=== PATIENT | male | born 1935 | race Caucasian/White ===

== ENCOUNTER 2019-11-17 12:37 | Outpatient (CLI) | payer BC, SELFPAY ==
--- NOTE | ~2019-11-17 | MR_ITS ---
EXAMINATION: MR brain IAC wo/w con EXAM DATE: 11/17/2019 14:40 INDICATION: Amnesia. Forgetful. TECHNIQUE: Multi-sequential, multiplanar MR images of the brain, brainstem, internal auditory canals were obtained without contrast. Whole brain sagittal T1, axial diffusion, gradient echo (T2*), T1, T 2, FLAIR sequences obtained. High resolution coronal 3-D FIESTA, coronal T1 FSE, axial T1 FSPGR of t he internal auditory canals. Patient was then injected with 10 cc Multihance contrast intravenously. Postcontrast axial and coronal T1 weighted whole brain, axial and coronal high resolution T1 IAC seq uences obtained. There is no prior study for comparison. FINDINGS: There is a small mass which appears to be arising from the region of the left hypoglossal canal at the skull base with the portion which is outside the canal measuring 7 mm in diameter. This minimally expands the canal. It is high in T2 signal, does not demonstrate enhancement. Absence of en hancement and restricted diffusion favors a benign indolent process. Cannot specifically identify thi s on the previous examination which did not have high resolution IAC images. Probably incidental candelario gn finding but a 3-six-month follow-up IAC MRI is recommended. No evidence of mastoid or middle ear o pacification. The 7th/8th cranial nerve complexes are symmetric, normal in course and caliber. Expected evolution of previously seen small left-sided signals from subacute infarctions, chronic pratibha earance today. There is no acute hemorrhage seen on the T2*, a hemosiderin sensitive sequence. No i ntraparenchymal brain mass lesion. There is mild periventricular and subcortical T2/FLAIR signal hype rintensity, nonspecific but probably related to small vessel ischemic disease (microangiopathy). Th ere is mild prominence of the sulci and ventricles related to cerebral atrophy. There are no extra- axial collections. Absence of flow related signal in the left internal carotid artery. The orbits ar e unremarkable. Soft tissue is unremarkable. IMPRESSION: 1. Incidental cystic nonenhancing small mass arising from the left hypoglossal canal region, most li sherice either primary bone histology or possibly nerve tumor but absence of restricted diffusion and en hancement favors indolent benign process. Recommend 3-six-month follow-up IAC exam. 2. Chronic age related findings. 3. Chronically occluded left ICA. Reviewed, dictated and finalized at location A. [employer] IMPRESSION: 1. Incidental cystic nonenhancing small mass arising from the left hypoglossal canal region, most likely either primary bone histology or possibly nerve tumo r but absence of restricted diffusion and enhancement favors indolent benign pr ocess. Recommend 3-six-month follow-up IAC exam. 2. Chronic age related findings. 3. Chronically occluded left ICA.
[2019-11-17 13:44] LABS: Blood Urea Nitrogen 21 mg/dL (8-26); Estimated Glomerular Filt Rate 48
== END 2019-11-17 12:38 | disposition home or self-care (01) ==
PROVIDERS: PCP Family Medicine; Visit Provider Physician Assistant
DX: R41.3 Other amnesia (principal); I65.22 Occlusion and stenosis of left carotid artery
CPT/HCPCS: 70553; A9577

== ENCOUNTER 2019-12-13 08:36 | Outpatient (CLI) | payer BC, SELFPAY ==
--- NOTE | 2019-12-13 09:00 | NEURO_ITS ---
TEST: ELECTROENCEPHALOGRAM DIAGNOSIS: COGNITIVE DECLINE PATIENT NUMBER: [id number] EEG NUMBER: [id number] RECORDING DATE: 12/13/19 CLINICAL HISTORY: Patient reports memory issues but does not know how long it has been going on. CONDITION OF RECORDING: Awake, drowsy and sleep EEG DESCRIPTION: The whole record consists of diffused low voltage 18-21beta activity. Bilateral symmetrical sleep activity is seen during sleep. Photic stimulation produced normal drive. Hyperventilation not done due to patients? age. Nonparoxysmal. Nonfocal. Nonlateralizing. IMPRESSION: No significant abnormalities noted, in particular there is no evidence of any focal or diffused high voltage theta or delta activity. Clinical correlation recommended. [facility]
[2019-12-16 09:40] LABS: Rapid Plasma Reagin Non-Reactive (NonReactive)
== END 2019-12-13 08:37 | disposition home or self-care (01) ==
PROVIDERS: PCP Family Medicine; Visit Provider Psychiatry & Neurology Neurology
DX: R41.89 Other symptoms and signs involving cognitive functions and awareness (principal); I25.10 Atherosclerotic heart disease of native coronary artery without angina pectoris; I10 Essential (primary) hypertension; Z79.899 Other long term (current) drug therapy
CPT/HCPCS: 36415; 82607; 84436; 84443; 86592; 95816

== ENCOUNTER 2020-01-24 11:40 | Inpatient (IN) | payer BC, SELFPAY ==
[2020-01-24] VITALS (9 sets, daily range): BP systolic 115–150; BP diastolic 67–110; PULSE 79–106; RESP 18–99; TEMP 36.2–36.8; O2SAT 20–100; BMI 15.3
--- NOTE | ~2020-01-24 | CT_ITS ---
EXAMINATION: CT abdomen pelvis wo con DATE: 01/24/2020 18:45 INDICATION: Weight loss TECHNIQUE: Computed tomography (CT) of the abdomen and pelvis was performed without intravenous contr ast. The dose-length product (DLP) was 222.33 mGy-cm. Automated exposure control and iterative recons truction technique were employed. COMPARISON: None FINDINGS: There is mild emphysema of the visualized lung bases. The heart size is normal. A moderate- sized sliding hiatal hernia is present. The intra-abdominal portion of the stomach is largely collaps ed and not well evaluated. Cysts of the liver measure up to 3.4 cm in the left hepatic lobe. Mild dis tention of the gallbladder is likely due to fasting state. The spleen, pancreas, and adrenal glands a re normal. There is marked distention of the urinary bladder. There is linear hyperattenuating materi al layering dependently in the bladder. There is mild to moderate right hydroureteronephrosis. A 1.5 cm cyst is noted in the right kidney. There is calcified atherosclerosis of the aorta and many of the other arteries. No pathologically enlarged abdominal or pelvic lymph nodes are identified. There is no free intraperitoneal gas or evidence of bowel obstruction. There is a large volume of colonic stoo l with impacted feces in the rectum. Brachytherapy seeds are noted in the prostate. There is moderate lumbar spondylosis. IMPRESSION: 1. Severe distention of the urinary bladder. Moderate right hydroureteronephrosis is likely due to bl adder distention. 2. Linear hyperattenuation in the dependent portion of the urinary bladder, likely bladder stones. 3. Constipation with fecal impaction in the rectum. Reviewed, dictated and finalized at location A. IMPRESSION: 1. Severe distention of the urinary bladder. Moderate right hydroureteronephros is is likely due to bladder distention. 2. Linear hyperattenuation in the dependent portion of the urinary bladder, lik flor bladder stones. 3. Constipation with fecal impaction in the rectum.
--- NOTE | ~2020-01-24 | XR_ITS ---
XR chest 2V DATE: 01/24/2020 12:21 INDICATION: Shortness of breath. Loss of appetite. Weakness. TECHNIQUE: AP and lateral views COMPARISON: 05/14/2018 portable AP chest FINDINGS: Status post sternotomy and cardiac valve replacement. Normal heart size. Aortic calcificati on. No hilar or mediastinal enlargement. Bilateral hyperinflation. A skinfold overlies the mid to upper outer right lung. No apparent pneumoth orax. No pleural effusion or pulmonary vascular congestion. Diffuse osteopenia. Diffuse idiopathic skeletal hyperostosis of the thoracic spine. IMPRESSION: COPD No active cardiopulmonary disease Status post sternotomy and probable aortic valve replacement Reviewed, dictated and finalized at location A.
--- NOTE | ~2020-01-24 | US_ITS ---
EXAMINATION: US renal BI DATE: 01/27/2020 14:47 INDICATION: Hydronephrosis. TECHNIQUE: Multiple ultrasound grayscale images of the kidneys were obtained. COMPARISON: CT abdomen and pelvis 01/24/2020 FINDINGS: The right kidney measures 8.6 x 3.3 x 3.7 cm. The left kidney measures 8.6 x 4.5 x 3.7 cm. The kidney s demonstrate normal parenchymal echogenicity. There is a 1.4 cm cyst in right kidney There is no hyd ronephrosis. The bladder is decompressed by a Jean catheter. IMPRESSION: 1. Mild atrophy of the kidneys. No hydronephrosis. Reviewed, dictated and finalized at location A.
--- NOTE | ~2020-01-24 | US_ITS ---
US right upper quadrant DATE: 01/27/2020 10:15 INDICATION: Elevated serum bilirubin level. Weight loss. Anorexia. Malnutrition. TECHNIQUE: Real-time imaging of liver, pancreas, gallbladder areas COMPARISON: 01/24/2020 CT abdomen pelvis FINDINGS: The pancreas is obscured by bowel gas. No hepatic space-occupying mass lesion is evident. N ormal hepatic portal venous flow direction. There is sludge within the gallbladder lumen. No gallstones or gallbladder wall thickening are identi fied. Negative sonographic Cagle's sign. The common bile duct measures 2.4 mm, within normal range. IMPRESSION: Sludge in gallbladder Pancreas is obscured by bowel Reviewed, dictated and finalized at Location A. Reviewed, dictated and finalized at location A.
--- NOTE | 2020-01-24 11:48 | ECG_ITS ---
Measurements Intervals [place] Rate: 109 P: 83 ME: 161 QRS: -82 QRSD: 133 T: 81 QT: 346 QTc: 466 Interpretive Statements SINUS TACHYCARDIA RIGHT ATRIAL ENLARGEMENT LEFT ATRIAL ENLARGEMENT RIGHT BUNDLE BRANCH BLOCK LEFT ANTERIOR FASCICULAR BLOCK LEFT VENTRICULAR HYPERTROPHY AND ST-T CHANGE BASELINE ARTIFACT- I, II, III, AVR ABNORMAL ECG Electronically Signed On 01-24-2020 11:52:01 CDT by Grant Pineda D.O.
[2020-01-24 11:57] LABS: Basophils Percent Auto 0.1 % (0.2-1.2); Immature Granulocyte Absolute 0.19 K/mm3 (0.00-0.031); Lymphocytes Percent Auto 3.3 % (18.3-44.2); Mean Corpuscular HGB Conc 32.7 g/dl (32-36); Mean Corpuscular Hemoglobin 30.7 pg (26-34); Mean Platelet Volume 10.7 fl (7.4-10.4); Monocytes Absolute Auto 1.1 K/mm3 (0.1-0.6); Monocytes Percent Auto 5.8 % (2.6-8.5); Neutrophils Absolute Auto 16.6 K/mm3 (1.3-6.7); Neutrophils Percent Auto 89.8 % (45.5-73.1); Platelet Count Result 225 k/mm3 (150-375); Red Blood Count 5.53 M/mm3 (4.6-6.20); Red Cell Distribution Width 14.2 % (11.5-14.5); White Blood Count 18.4 K/mm3 (4.5-10.0)
[2020-01-24 12:12] LABS: Alanine Aminotransferase 38 U/L (4-50); Albumin Level 4.7 g/dL (3.5-5.1); Alkaline Phosphatase 74 U/L (38-126); Aspartate Amino Transferase 38 U/L (17-59); Bilirubin,Total 1.6 mg/dL (0.2-1.3); Blood Urea Nitrogen 87 mg/dL (9-20); Calcium 10.1 mg/dL (8.4-10.2); Carbon Dioxide 25 mmol/L (22-30); Chloride 119 mmol/L (98-107); Estimated CRCL calculation 15 ml/min; Estimated Glomerular Filt Rate 30; Glucose 123 mg/dL (75-110); Potassium 4.3 mmol/L (3.4-5.0); Sodium 154 mmol/L (137-145)
--- NOTE | 2020-01-24 12:55 | PC.NURSE ---
Attempted straight cath at this time, unable to pass prostate. Also attempted coude catheter with no results noted. Dr. Sheriff notified.
[2020-01-24] MEDS: SODIUM CHLORIDE 0.9% IV 500 ML IV CONT (13:17)
--- NOTE | 2020-01-24 13:17 | PC.NURSE ---
Verbal order received per Dr. Sheriff for 500 ml NS bolus at this time.
--- NOTE | 2020-01-24 13:51 | ED.GENADULT ---
HPI - General Adult General Chief complaint: Weakness Stated complaint: Weakness Time Seen by Provider: 01/24/20 12:42 Source: patient and family Mode of arrival: EMS Limitations: clinical condition and dementia History of Present Illness HPI narrative: 84-year-old with a history of hypertension, hyperlipidemia, dementia was brought in from home with the complaints of marked weakness. Patient and his report that he has not been eating or drinking for past few days. He states that he has no appetite. And he also mentions that he does not feel good. No history of fever or chills. Denies any nausea, vomiting or abdominal pain or diarrhea. No history of chest pain or shortness of breath. Onset (ago): day(s) (2) Severity: moderate Pain Consistency: constant Exacerbating factors: none Associated symptoms: denies other symptoms Related Data Home Medications Medication Instructions Recorded Confirmed amlodipine 2.5 mg tablet 2.5 mg PO DAILY 08/22/19 lisinopril 10 mg tablet 10 mg PO DAILY 11/13/19 Allergies Allergy/AdvReac Type Severity Reaction Status Date / Time [id number] Reductase AdvReac Intermediate Swelling Verified 11/13/19 14:28 Inhibitor statins AdvReac Intermediate Swelling Uncoded 09/12/19 08:18 Review of Systems Review of Systems: All systems reviewed & are unremarkable except as noted in HPI and below Constitutional: Constitutional: Reports no additional constitutional complaints Eyes: Eyes: Reports no additional eye complaints ENT: Reports system reviewed and no additional complaints, except as documented Cardiovascular: Cardiovascular: Reports no additional cardiovascular complaints Respiratory: Respiratory: Reports no additional respiratory complaints Gastrointestinal: Gastrointestinal: Reports abdominal pain Musculoskeletal: Musculoskeletal: Reports no additional musculoskeletal complaints Neurologic: Reports system reviewed and no additional complaints, except as documented Psychiatric: Psychiatric: Reports depression [facility] Past Medical History Medical History Anxiety Coronary artery disease HLD (hyperlipidemia) Hypertension Hypertension Surgical History Surgical History Aortic valve replaced H/O mitral valve replacement Hx of heart bypass surgery Social History Social History Social History: Denies tobacco use Smoking status: Never smoker Second hand tobacco smoke exposure: No Alcohol intake: never Substance use: never Gender identity (if verbalized by the patient): Male Exam Const: General: alert and ill appearing Nutritional Appearance: thin HENMT: Head: normal to inspection Eyes: Pupils: Equal, round and reactive pupils present Neck: Neck: normal visual inspection Resp: Effort & Inspection: normal respiratory effort Auscultation: clear to auscultation bilaterally Cardio: Rate: tachycardic GI: GI Palp: Yes Soft to palpation Skin: General skin exam: normal color Neuro: General: patient oriented x3 Course Course Emergency Course: Inform patient about his lab work here. Will admit to the hospital for hydration. Vital Signs Vital signs: Vital Signs Temperature 36.8 C 01/24/20 11:41 Pulse Rate 101 H 01/24/20 11:41 Respiratory Rate 20 01/24/20 11:41 Blood Pressure 128/83 01/24/20 11:41 Pulse Oximetry 95 01/24/20 11:41 Temperature 36.8 C 01/24/20 11:41 Pulse Rate 106 H 01/24/20 13:35 Respiratory Rate 20 01/24/20 13:35 Blood Pressure 150/79 H 01/24/20 13:35 Pulse Oximetry 100 01/24/20 13:35 Medical Decision Making Vital Signs Vital Signs: Vital Signs Temperature 36.8 C 01/24/20 11:41 Pulse Rate 101 H 01/24/20 11:41 Respiratory Rate 20 01/24/20 11:41 Blood Pressure 128/83 01/24/20 11:41 Pulse Oximetry 95
--- NOTE | 2020-01-24 14:08 | PC.NURSE ---
Bladder scan patient at this time, 200 ml urine noted.
[2020-01-24] MEDS: SODIUM CHLORIDE 0.9% IV 1,000 ML 75 ML IV CONT (15:00)
--- NOTE | 2020-01-24 15:23 | PM.IMHP ---
H&P: HPI History of Present Illness Chief complaint: LYUDMILA < dehydration Narrative: Dung Saab is a 84 year old male of having CVAs and TIAs. The patient has not been eating or drinking for several days and has become very weak. He denies any fever or chills. No nausea no vomiting no diarrhea. Patient stated he just does not feel like eating. He has been followed by neurology he sees Dr. Urbano the neurologist. Patient has had several months of odd behaviors, delusions, and paranoia. Patient had a MRI of the brain which demonstrates chronic ischemic changes. An incidental cystic masses noted in the left hypoglossal canal region for which a follow-up examination is recommended by the [facility] radiologist. He also had evidence of an occluded left internal carotid artery. When I question the patient concerning his career the patient could not remember. I asked him to say a few words in Martiniquais and he was having difficulty remembering the translation from Swedish. Patient kept apologizing saying he did not know is wrong with him because he lost his memory. Patient had subacute progressive memory impairment with delusions and frontal lobe cognition issues, suspect for potential frontal temporal dementia. Also concurrent depression likely. Is recommended that the patient possibly have a PET scan for further evaluation.Was noted to be 154. Patient appears to be dehydrated. Creatinine 2.1. Patient has not had any previous history of any kidney disease. Patient's chest x-ray was read as COPD. No acute cardiopulmonary disease. Date of service 01/24/2020 Review of Systems Review of Systems: All systems reviewed & are unremarkable except as noted in HPI and below Constitutional: Constitutional: Reports as per HPI and Reports no additional constitutional complaints Eyes: Eyes: Reports as per HPI and Reports no additional eye complaints ENT: Reports system reviewed and no additional complaints, except as documented, Reports Normal hearing present and Reports dry mouth Cardiovascular: Cardiovascular: Reports no additional cardiovascular complaints Respiratory: Respiratory: Reports no additional respiratory complaints and Reports no additional respiratory complaints Gastrointestinal: Gastrointestinal: Reports as per HPI Comments: Loss of appetite Musculoskeletal: Musculoskeletal: Reports no additional musculoskeletal complaints Integumentary/Breasts: Skin/Breast: Reports system reviewed and no additional complaints, except as docu and Reports as per HPI Neurologic: Reports system reviewed and no additional complaints, except as documented, Reports as per HPI and Reports Normal hearing present Psychiatric: Psychiatric: Reports no additional psychiatric complaints and Reports as per HPI Endocrine: Endocrine: Reports no additional endocrine complaints Hematologic/Lymphatic: Hematologic/Lymphatic: Reports no additional hematologic/lymphatic complaints Allergic/Immunologic: Allergic/Immunologic: Reports no additional allergic/immunologic complaints [facility] Past Medical History Medical History (Updated 01/24/20 @ 15:40 by Mallory Hartmann NP) Anxiety Coronary artery disease History of 3 vessel CABG History of CVA (cerebrovascular accident) History of prostate cancer Radiation seed implants History of TIAs HLD (hyperlipidemia) Hypertension Surgical History Surgical History (Updated 01/24/20 @ 15:40 by Mallory Hartmann NP) Aortic valve replaced H/O inguinal hernia repair H/O mitral valve replacement Hx of heart bypass surgery 3 vessel CABG Family History Family History Mother Natural with proved cause Father Fall at the age of 75 due to complications of following up for [place]. Sibling Accidental One brother Heart disease Two brothers from coronary artery disease Social History Social History (Updated 01/24/20 @ 15:45
--- NOTE | 2020-01-24 15:30 | ADMGEN ---
This patient, Dung Saab, was admitted to 2 Medical Room 242-01. Patient/family oriented to hospital policies and general routines including ID bracelet, bed and alarms, visiting hours, pain management, procedures, bathroom and other care routines, personal items, smoking policy, room service/diet, and visiting hours. Valuables list has been completed. Information on how to activate the Rapid Response Team has been discussed. Patient/Family are encouraged to report perceived risks to care and to ask questions if they do not understand what they are told or what they should do.
[2020-01-24 15:52] LABS: Blood Urea Nitrogen 84 mg/dL (9-20); Calcium 9.6 mg/dL (8.4-10.2); Carbon Dioxide 25 mmol/L (22-30); Chloride 121 mmol/L (98-107); Estimated CRCL calculation 13 ml/min; Estimated Glomerular Filt Rate 26; Glucose 119 mg/dL (75-110); Potassium 4.2 mmol/L (3.4-5.0); Sodium 155 mmol/L (137-145)
[2020-01-24] MEDS: DEXTROSE 5%/0.45% SOD CHL 1,000 ML 100 ML IV CONT (16:15)
[2020-01-24] MEDS: FAMOTIDINE 20 MG/2 ML VIAL IV PUSH (20:18)
[2020-01-24 22:26] LABS: Blood Urea Nitrogen 82 mg/dL (9-20); Calcium 9.4 mg/dL (8.4-10.2); Carbon Dioxide 25 mmol/L (22-30); Chloride 123 mmol/L (98-107); Estimated CRCL calculation 15 ml/min; Estimated Glomerular Filt Rate 32; Glucose 150 mg/dL (75-110); Sodium 154 mmol/L (137-145)
[2020-01-25 04:55] LABS: Basophils Percent Auto 0.1 % (0.2-1.2); Hematocrit 46.9 % (42.0-52.0); Hemoglobin 15.7 g/dL (14.0-18.0); Immature Granulocyte Absolute 0.09 K/mm3 (0.00-0.031); Immature Granulocyte Percent A 0.6 % (0-0.5); Lymphocytes Percent Auto 3.4 % (18.3-44.2); Mean Corpuscular HGB Conc 33.5 g/dl (32-36); Mean Corpuscular Hemoglobin 31.3 pg (26-34); Mean Corpuscular Volume 93.6 fl (80-100); Mean Platelet Volume 10.6 fl (7.4-10.4); Monocytes Percent Auto 6.9 % (2.6-8.5); Platelet Count Result 160 k/mm3 (150-375); Red Blood Count 5.01 M/mm3 (4.6-6.20); Red Cell Distribution Width 14.1 % (11.5-14.5); White Blood Count 14.6 K/mm3 (4.5-10.0)
[2020-01-25 05:13] LABS: Blood Urea Nitrogen 83 mg/dL (9-20); Calcium 9.6 mg/dL (8.4-10.2); Carbon Dioxide 27 mmol/L (22-30); Chloride 122 mmol/L (98-107); Estimated CRCL calculation 15 ml/min; Estimated Glomerular Filt Rate 32; Glucose 166 mg/dL (75-110); Magnesium 3.5 mg/dL (1.6-2.3); Potassium 4.1 mmol/L (3.4-5.0); Sodium 155 mmol/L (137-145)
[2020-01-25 06:00] VITALS: BP 142/70; PULSE 84; RESP 20; TEMP 36.7; O2SAT 99
[2020-01-25] MEDS: DEXTROSE 5%/0.45% SOD CHL 1,000 ML 100 ML IV CONT ×2 (06:18→15:56)
[2020-01-25 06:26] LABS: Thyroid Stimulating Hormone Reflex 0.864 uIU/mL (0.465-4.68)
[2020-01-25] MEDS: FAMOTIDINE 20 MG/2 ML VIAL IV PUSH ×2 (08:20→21:19)
[2020-01-25] MEDS: polyethylene glycoL 3350 17 GM POWD.PACK PO (10:01)
[2020-01-25] MEDS: AMLODIPINE BESYLATE 5 MG TABLET PO (10:01)
--- NOTE | 2020-01-25 11:09 | WPDUROPN2 ---
Progress Note: A&P Assessment and Plan (1) LYUDMILA (acute kidney injury): Code(s): N17.9 - Acute kidney failure, unspecified Status: Acute Assessment and Plan: needs renner and placed (2) Acute dehydration: Code(s): E86.0 - Dehydration Status: Acute (3) Prostate cancer: Code(s): C61 - Malignant neoplasm of prostate Status: Acute Assessment and Plan: had brachytherapy and unsure recent PSA. (4) Hydronephrosis: Code(s): N13.30 - Unspecified hydronephrosis Status: Acute Assessment and Plan: likely secondary to bladder distension---will check JOSE LUIS in few days (5) Urinary retention: Code(s): R33.9 - Retention of urine, unspecified Status: Acute Assessment and Plan: placed renner---difficult past prostate----will follow output. sheree myogenic bladder Subjective Subjective Date/Time Seen: 01/25/20 11:09 Principal diagnosis: right hydronephrosis and bladder distended, SP brachytherapy Interval history: Patient with past brachytherapy and has CT with distended bladder and right hydro small bladder stones. Could not place renner in ER yesterday with several attempts. He denies pain and voiding dysfunction. Review of Systems Gastrointestinal: Gastrointestinal: Reports no additional gastrointestinal complaints Musculoskeletal: Musculoskeletal: Reports atrophy Exam Narrative: Exam Narrative: very thin and no bladder pain---placed coude 16 turkmen at bedside Const: General: cooperative; No acute distress HENMT: Ears: hearing grossly normal bilaterally Resp: Effort & Inspection: normal respiratory effort GI: Inspection: normal to inspection GI Palp: No abdominal tenderness : General: Yes bladder normal to palpation and Yes no CVA tenderness Penis: Yes normal penis Meatus: meatus normal Scrotum: scrotum normal Objective Data Vital Signs Vital Signs: Vital Signs - 24 hr 01/24/20 11:41 01/24/20 12:32 01/24/20 12:34 Temperature 36.8 C Pulse Rate 101 H 79 103 H Respiratory Rate 20 23 H Blood Pressure 128/83 115/76 Pulse Oximetry 95 100 01/24/20 13:28 01/24/20 13:35 01/24/20 14:00 Temperature Pulse Rate 102 H 106 H 101 H Respiratory Rate 18 20 18 Blood Pressure 150/79 H 150/79 H 150/110 H Pulse Oximetry 98 100 100 01/24/20 14:52 01/24/20 18:05 01/24/20 22:00 Temperature 36.4 C 36.4 C L 36.2 C L Pulse Rate 97 97 96 Respiratory Rate 20 18 99 H Blood Pressure 140/72 144/67 H 142/68 H Pulse Oximetry 98 96 20 L 01/25/20 06:00 Temperature 36.7 C Pulse Rate 84 Respiratory Rate 20 Blood Pressure 142/70 H Pulse Oximetry 99 Intake/Output Intake/Output: Intake & Output 01/22/20 01/23/20 01/24/20 01/25/20 23:59 23:59 23:59 23:59 Intake Total 624 1100 Balance 624 1100 Meds/Results Medications: Active Medications Generic Name Dose Route Start Last Admin Trade Name Freq PRN Reason Stop Dose Admin Acetaminophen 650 mg 01/24/20 13:35 Tylenol Tablet PO Q4H PRN Mild Pain (1-3) or Fever Amlodipine Besylate 5 mg 01/25/20 09:00 01/25/20 10:01 Norvasc PO 5 mg DAILY SAHE Administration Bisacodyl 10 mg 01/25/20 08:31 Dulcolax Suppository RECTAL DAILY PRN Constipation Famotidine 20 mg 01/24/20 21:00 01/25/20 08:20 Pepcid Iv IV PUSH 20 mg Q12HR SHAE Administration Hydralazine HCl 10 mg 01/24/20 15:21 Apresoline Hcl Inj IV PUSH Q8H PRN Blood Pressure - High Dextrose/Sodium Chloride 1,000 mls @ 100 mls/hr 01/24/20 16:00 01/25/20 06:18 Dextrose 5% Sodium Chloride 0.45% IV CONT 100 mls/hr .Q10H SHAE Administration Polyethylene Glycol 17 gm 01/25/20 09:00 01/25/20 10:01 Miralax PO 17 gm QAM SHAE Administration Radiology Results: ITS Impressions Chest X-Ray 01/24/20 12:27 IMPRESSION: COPD No active cardiopulmonary disease Status post sternotomy and probable aortic valve replacement
[2020-01-25 12:03] LABS: Add Urine Microscopic? YES; Appearance Urine Cloudy (Clear); Bilirubin Urine Negative (Negative); Blood Urine 3+ (Negative); Color Urine Yellow (Yellow); Glucose Urine UA Negative (Negative); Ketones Urine Negative (Negative); Leukocyte Esterase Ur Negative LEU/UL (Negative); Nitrate Urine Negative (Negative); Protein Urine 1+ mg/dL (Negative); RBC Urine >75 /hpf (0-2); Specific Grav Ur 1.021 (1.001-1.035); Uric Acid Crystals Urine Present /hpf; Urobilinogen Urine Negative mg/dL (<2.0); WBC Urine 0-3 /hpf
--- NOTE | 2020-01-25 12:30 | PM.IMPN ---
Progress Note: A&P Assessment and Plan (1) Severe malnutrition: Code(s): E43 - Unspecified severe protein-calorie malnutrition Status: Acute Assessment and Plan: Patient is 98lb. Patient does not want to eat, has no appetite. Patient expresses to me he would not want a feeding tube of any type. Continue dietary supplementation. Will touch base with family to discuss further goals of care. Edit: Spoke with patient's on the phone. She tells me he has had nothing to eat or drink since Monday, that he refuses to eat when she tries to feed him. Offered for her to speak with a hospice group - she would like to speak with her children first. (2) Memory impairment: Code(s): R41.3 - Other amnesia Status: Chronic Assessment and Plan: Patient's neurologist is Dr. Ventura Urbano. Office note from 12/02/19 describes a diagnosis of subacute progressive memory impairment with delusions and frontal lobe cognitive issues, suspect for potential frontotemporal dementia with likely concurrent depression. (3) Generalized weakness: Code(s): R53.1 - Weakness Status: Acute Assessment and Plan: Secondary to malnutrition, debility. Appreciate PT/OT evals for discharge planning. (4) Acute on chronic renal failure: Qualifiers: Chronic kidney disease stage: unspecified stage Acute renal failure type: unspecified Qualified Code(s): N17.9 - Acute kidney failure, unspecified; N18.9 - Chronic kidney disease, unspecified Code(s): N17.9 - Acute kidney failure, unspecified; N18.9 - Chronic kidney disease, unspecified Status: Acute Assessment and Plan: Cr up to 2.4 (was 1.4 in November). Poor/no oral intake, hypoperfusion, hydronephrosis may contribute. Monitor renal function. (5) Hypernatremia: Code(s): E87.0 - Hyperosmolality and hypernatremia Status: Acute Assessment and Plan: Sodium 155. Change IV fluids to D5W and recheck Na in AM. (6) Hydronephrosis: Qualifiers: Hydronephrosis type: unspecified Qualified Code(s): N13.30 - Unspecified hydronephrosis Code(s): N13.30 - Unspecified hydronephrosis Status: Acute Assessment and Plan: CT abdomen/pelvis shows severe distention of the urinary bladder in moderate right hydroureteronephrosis. Urology consulted - appreciate recommendations. (7) History of prostate cancer: Code(s): Z85.46 - Personal history of malignant neoplasm of prostate Status: Acute Assessment and Plan: Patient has history of prostate cancer, with brachytherapy seed implantation 2000 based on the EMR. (8) Urinary retention: Code(s): R33.9 - Retention of urine, unspecified Status: Acute Assessment and Plan: Jean catheter initiated. Low urine output may be secondary to severe dehydration. Appreciate urology input. (9) Coronary artery disease: Qualifiers: Associated angina: without angina Coronary Disease-Associated Artery/Lesion type: bypass graft [place] vs. transplanted heart: [place] heart Qualified Code(s): I25.810 - Atherosclerosis of coronary artery bypass graft(s) without angina pectoris Code(s): I25.10 - Atherosclerotic heart disease of [place] coronary artery without angina pectoris Status: Chronic Assessment and Plan: S/p three-vessel CABG, aortic valve replacement. Patient denies chest pain. (10) Hypertension: Qualifiers: Hypertension type: essential hypertension Qualified Code(s): I10 - Essential (primary) hypertension Code(s): I10 - Essential (primary) hypertension Status: Chronic Assessment and Plan: Blood pressure 1
[2020-01-25 13:05] VITALS: BMI 10.0
[2020-01-25 13:07] VITALS: BMI 10.0
[2020-01-25 13:59] LABS: Sodium 154 mmol/L (137-145)
[2020-01-25 14:00] VITALS: BP 153/65; PULSE 85; RESP 12; TEMP 36.4; O2SAT 100
[2020-01-25] MEDS: DEXTROSE 5% 1,000 ML 1,000 ML 80 ML IV CONT (16:08)
[2020-01-25] MEDS: BISACODYL 10 MG SUPPOSITORY RECTAL (18:29)
[2020-01-25 22:00] VITALS: BP 131/55; PULSE 57; RESP 20; TEMP 36.2; O2SAT 99
[2020-01-26 04:50] LABS: Hematocrit 45.6 % (42.0-52.0); Hemoglobin 14.7 g/dL (14.0-18.0); Mean Corpuscular HGB Conc 32.2 g/dl (32-36); Mean Corpuscular Hemoglobin 30.8 pg (26-34); Mean Corpuscular Volume 95.6 fl (80-100); Platelet Count Result 119 k/mm3 (150-375); Red Blood Count 4.77 M/mm3 (4.6-6.20); Red Cell Distribution Width 13.7 % (11.5-14.5)
[2020-01-26 05:10] LABS: Alanine Aminotransferase 28 U/L (4-50); Albumin Level 3.5 g/dL (3.5-5.1); Alkaline Phosphatase 58 U/L (38-126); Aspartate Amino Transferase 28 U/L (17-59); Bilirubin,Total 1.9 mg/dL (0.2-1.3); Blood Urea Nitrogen 54 mg/dL (9-20); Calcium 9.3 mg/dL (8.4-10.2); Carbon Dioxide 29 mmol/L (22-30); Chloride 120 mmol/L (98-107); Estimated CRCL calculation 25 ml/min; Estimated Glomerular Filt Rate 48; Glucose 129 mg/dL (75-110); Magnesium 3.1 mg/dL (1.6-2.3); Phosphorus 2.6 mg/dL (2.5-4.5); Potassium 3.6 mmol/L (3.4-5.0); Sodium 152 mmol/L (137-145)
[2020-01-26 06:00] VITALS: BP 129/62; PULSE 86; RESP 21; TEMP 36.6; O2SAT 100
[2020-01-26] MEDS: DEXTROSE 5% 1,000 ML 1,000 ML 80 ML IV CONT ×2 (06:01→16:51)
--- NOTE | 2020-01-26 08:19 | PC.NURSE ---
Patient refusing to take 0900 medications. Notified NATALIE Clark. She stated to hold 0900 dose of Miralax and Norvasc.
[2020-01-26] MEDS: FAMOTIDINE 20 MG/2 ML VIAL IV PUSH ×2 (08:24→21:05)
--- NOTE | 2020-01-26 08:48 | PCPTNOTE ---
Attempted therapy session. Pt refused LE exercises in bed, sitting EOB, and transferring to a recliner. Therapist explained the importance of therapy and the importance of getting up and moving, Pt acknowledged and stated I don't want to do any exercises or anything else because of this weakness. Will attempt therapy session again.
--- NOTE | 2020-01-26 10:34 | WPDUROPN2 ---
Progress Note: A&P Assessment and Plan (1) LYUDMILA (acute kidney injury): Code(s): N17.9 - Acute kidney failure, unspecified Status: Acute Assessment and Plan: Renner in place (2) Acute dehydration: Code(s): E86.0 - Dehydration Status: Acute (3) Prostate cancer: Code(s): C61 - Malignant neoplasm of prostate Status: Inactive Assessment and Plan: had brachytherapy and unsure recent PSA. (4) Hydronephrosis: Qualifiers: Hydronephrosis type: unspecified Qualified Code(s): N13.30 - Unspecified hydronephrosis Code(s): N13.30 - Unspecified hydronephrosis Status: Acute Assessment and Plan: likely secondary to bladder distension---will check JOSE LUIS in few days (5) Urinary retention: Code(s): R33.9 - Retention of urine, unspecified Status: Acute Assessment and Plan: placed renner---difficult past prostate----will follow output. sheree huffman bladder Subjective Subjective Date/Time Seen: 01/26/20 10:[address] Urine OK. Exam Narrative: Exam Narrative: very thin and no bladder pain---placed coude 16 hungarian at bedside Const: General: cooperative; No acute distress HENMT: Ears: hearing grossly normal bilaterally Resp: Effort & Inspection: normal respiratory effort GI: Inspection: normal to inspection : General: Yes bladder normal to palpation and Yes no CVA tenderness Penis: Yes normal penis Meatus: meatus normal Scrotum: scrotum normal Back/Spine/Pelvis: Back: no CVA tenderness Objective Data Vital Signs Vital Signs: Vital Signs - 24 hr 01/25/20 14:00 01/25/20 22:00 01/26/20 06:00 Temperature 36.4 C L 36.2 C L 36.6 C Pulse Rate 85 57 L 86 Respiratory Rate 12 20 21 H Blood Pressure 153/65 H 131/55 L 129/62 Pulse Oximetry 100 99 100 Intake/Output Intake/Output: Intake & Output 01/23/20 01/24/20 01/25/20 01/26/20 23:59 23:59 23:59 23:59 Intake Total 624 1606 929 Output Total 225 400 Balance 624 2971 529 Meds/Results Medications: Active Medications Generic Name Dose Route Start Last Admin Trade Name Freq PRN Reason Stop Dose Admin Acetaminophen 650 mg 01/24/20 13:35 Tylenol Tablet PO Q4H PRN Mild Pain (1-3) or Fever Amlodipine Besylate 5 mg 01/25/20 09:00 01/26/20 08:20 Norvasc PO Not Given DAILY SHAE Bisacodyl 10 mg 01/25/20 08:31 01/25/20 18:29 Dulcolax Suppository RECTAL 10 mg DAILY PRN Administration Constipation Famotidine 20 mg 01/24/20 21:00 01/26/20 08:24 Pepcid Iv IV PUSH 20 mg Q12HR SHAE Administration Hydralazine HCl 10 mg 01/24/20 15:21 Apresoline Hcl Inj IV PUSH Q8H PRN Blood Pressure - High Dextrose 1,000 mls @ 80 mls/hr 01/25/20 15:55 01/26/20 06:01 Dextrose 5% 1,000 Ml IV CONT 80 mls/hr .[id number] SHAE Administration Polyethylene Glycol 17 gm 01/25/20 09:00 01/26/20 08:20 Miralax PO Not Given QAM [facility] Radiology Results: ITS Impressions Chest X-Ray 01/24/20 12:27 IMPRESSION: COPD No active cardiopulmonary disease Status post sternotomy and probable aortic valve replacement Abdomen/Pelvis CT 01/24/20 18:55 IMPRESSION: 1. Severe distention of the urinary bladder. Moderate right hydroureteronephrosis is likely due to bladder distention. 2. Linear hyperattenuation in the dependent portion of the urinary bladder, likely bladder stones. 3. Constipation with fecal impaction in the rectum. Labs Labs: Laboratory Results - last 24 hr 01/25/20 01/25/20 01/26/20 11:40 13:40 04:33 WBC 13.0 H RBC 4.77 Hgb 14.7 Hct 45.6 MCV 95.6 MCH 30.8 MCHC 32.2 RDW 13.7 Plt Count 119 L MPV 11.0 H Sodium 154 H Potassium Chloride Carbon Dioxide BUN Creatinine Estim Creat Clear Calc Estimated GFR Glucose Calcium Phosphorus Magnesium Total Bilirubin AST ALT Alkaline
--- NOTE | 2020-01-26 12:59 | PM.IMPN ---
Progress Note: A&P Assessment and Plan (1) Severe malnutrition: Code(s): E43 - Unspecified severe protein-calorie malnutrition Status: Acute Assessment and Plan: Patient is 98lb. Patient does not want to eat, has no appetite. Patient expresses to me he would not want a feeding tube of any type. Continue dietary supplementation. Discussed long-term goals of care with patient's on the phone 01/24. She tells me he has had nothing to eat or drink since Monday, that he refuses to eat when she tries to feed him. Offered for her to speak with a hospice group - she would like to speak with her children first. She notes that he has an appointment with [facility] in May to establish care but tells me I am worried he may before then. (2) Memory impairment: Code(s): R41.3 - Other amnesia Status: Chronic Assessment and Plan: Patient's neurologist is Dr. Ventura Urbano. Office note from 12/02/19 describes a diagnosis of subacute progressive memory impairment with delusions and frontal lobe cognitive issues, suspect for potential frontotemporal dementia with likely concurrent depression. (3) Generalized weakness: Code(s): R53.1 - Weakness Status: Acute Assessment and Plan: Secondary to severe malnutrition, debility. Appreciate PT/OT evals for discharge planning. (4) Acute on chronic renal failure: Qualifiers: Acute renal failure type: unspecified Chronic kidney disease stage: unspecified stage Qualified Code(s): N17.9 - Acute kidney failure, unspecified; N18.9 - Chronic kidney disease, unspecified Code(s): N17.9 - Acute kidney failure, unspecified; N18.9 - Chronic kidney disease, unspecified Status: Acute Assessment and Plan: Cr improved to 1.4 with hydration. Poor/no oral intake, hypoperfusion, hydronephrosis may contribute. Monitor renal function. (5) Hypernatremia: Code(s): E87.0 - Hyperosmolality and hypernatremia Status: Acute Assessment and Plan: Sodium 152. Continue D5W and trend sodium level. (6) Hydronephrosis: Qualifiers: Hydronephrosis type: unspecified Qualified Code(s): N13.30 - Unspecified hydronephrosis Code(s): N13.30 - Unspecified hydronephrosis Status: Acute Assessment and Plan: CT abdomen/pelvis shows severe distention of the urinary bladder in moderate right hydroureteronephrosis. Urology consulted - appreciate recommendations. (7) History of prostate cancer: Code(s): Z85.46 - Personal history of malignant neoplasm of prostate Status: Acute Assessment and Plan: Patient has history of prostate cancer, with brachytherapy seed implantation 2000 based on the EMR. (8) Urinary retention: Code(s): R33.9 - Retention of urine, unspecified Status: Acute Assessment and Plan: Jean catheter initiated. Low urine output may be secondary to severe dehydration. Appreciate urology input. (9) Coronary artery disease: Qualifiers: Associated angina: without angina Coronary Disease-Associated Artery/Lesion type: bypass graft [place] vs. transplanted heart: [place] heart Qualified Code(s): I25.810 - Atherosclerosis of coronary artery bypass graft(s) without angina pectoris Code(s): I25.10 - Atherosclerotic heart disease of [place] coronary artery without angina pectoris Status: Chronic Assessment and Plan: S/p three-vessel CABG, aortic valve replacement. Patient denies chest pain. (10) Hypertension: Qualifiers: Hypertension type: essential hypertension Qualified Code(s): I10 - Essential (primary) hypertension Code(s): I10 -
[2020-01-26 14:00] VITALS: BP 138/57; PULSE 80; RESP 16; TEMP 36.4; O2SAT 100
[2020-01-27 04:00] VITALS: BP 121/58; PULSE 75; RESP 18; TEMP 36.7; O2SAT 99
[2020-01-27] MEDS: DEXTROSE 5% 1,000 ML 1,000 ML 80 ML IV CONT (05:18)
[2020-01-27 06:15] LABS: Alanine Aminotransferase 29 U/L (4-50); Albumin Level 3.1 g/dL (3.5-5.1); Alkaline Phosphatase 58 U/L (38-126); Aspartate Amino Transferase 24 U/L (17-59); Bilirubin,Total 1.7 mg/dL (0.2-1.3); Blood Urea Nitrogen 37 mg/dL (9-20); Calcium 8.7 mg/dL (8.4-10.2); Carbon Dioxide 26 mmol/L (22-30); Chloride 114 mmol/L (98-107); Estimated CRCL calculation 31 ml/min; Estimated Glomerular Filt Rate > 60; Glucose 123 mg/dL (75-110); Potassium 3.4 mmol/L (3.4-5.0); Sodium 144 mmol/L (137-145)
--- NOTE | 2020-01-27 08:17 | WPDUROPN2 ---
Progress Note: A&P Assessment and Plan (1) History of prostate cancer: Code(s): Z85.46 - Personal history of malignant neoplasm of prostate Status: Acute (2) Urinary retention: Code(s): R33.9 - Retention of urine, unspecified Status: Acute Assessment and Plan: Jean catheter in place. Would start Flomax. Renal function has improved. Could attempt a voiding trial before discharge. Unclear if it will be successful given his current mental state. (3) Hydronephrosis: Qualifiers: Hydronephrosis type: unspecified Qualified Code(s): N13.30 - Unspecified hydronephrosis Code(s): N13.30 - Unspecified hydronephrosis Status: Acute Assessment and Plan: Renal function has improved secondary to Jean catheter placement. Could reimage kidneys to document resolution of hydronephrosis. Subjective Subjective Date/Time Seen: 01/27/20 08:17 Patient does not give any history. Jean catheter is in place with clear yellow urine. Creatinine has improved to 1.1. Exam Const: General: uncomfortable Resp: Effort & Inspection: normal respiratory effort Urinary Catheter: Urinary Catheter: patent and draining and urine clear Psych: Mental Status: mental status grossly abnormal Other: Not communicative this morning. Basically moans. Objective Data Vital Signs Vital Signs: Vital Signs - 24 hr 01/26/20 14:00 01/27/20 04:00 Temperature 97.5 F L 98.1 F Pulse Rate 80 75 Respiratory Rate 16 18 Blood Pressure 138/57 L 121/58 L Pulse Oximetry 100 99 Intake/Output Intake/Output: Intake & Output 01/24/20 01/25/20 01/26/20 01/27/20 23:59 23:59 23:59 23:59 Intake Total 624 8526 1971 958 Output Total 225 875 150 Balance 624 2221 1096 808 Meds/Results Medications: Active Medications Generic Name Dose Route Start Last Admin Trade Name Freq PRN Reason Stop Dose Admin Acetaminophen 650 mg 01/24/20 13:35 Tylenol Tablet PO Q4H PRN Mild Pain (1-3) or Fever Amlodipine Besylate 5 mg 01/25/20 09:00 01/26/20 08:20 Norvasc PO Not Given DAILY SHAE Bisacodyl 10 mg 01/25/20 08:31 01/25/20 18:29 Dulcolax Suppository RECTAL 10 mg DAILY PRN Administration Constipation Famotidine 20 mg 01/24/20 21:00 01/26/20 21:05 Pepcid Iv IV PUSH 20 mg Q12HR SHAE Administration Hydralazine HCl 10 mg 01/24/20 15:21 Apresoline Hcl Inj IV PUSH Q8H PRN Blood Pressure - High Sodium Chloride 1,000 mls @ 80 mls/hr 01/27/20 07:25 Normal Saline Iv IV CONT .[id number] [facility] Polyethylene Glycol 17 gm 01/25/20 09:00 01/26/20 08:20 Miralax PO Not Given QAM [facility] Radiology Results: ITS Impressions Chest X-Ray 01/24/20 12:27 IMPRESSION: COPD No active cardiopulmonary disease Status post sternotomy and probable aortic valve replacement Abdomen/Pelvis CT 01/24/20 18:55 IMPRESSION: 1. Severe distention of the urinary bladder. Moderate right hydroureteronephrosis is likely due to bladder distention. 2. Linear hyperattenuation in the dependent portion of the urinary bladder, likely bladder stones. 3. Constipation with fecal impaction in the rectum. Labs Labs: Laboratory Results - last 24 hr 01/27/20 04:55 Sodium 144 Potassium 3.4 Chloride 114 H Carbon Dioxide 26 BUN 37 H D Creatinine 1.10 Estim Creat Clear Calc 31 Estimated GFR > 60 Glucose 123 H Calcium 8.7 Total Bilirubin 1.7 H AST 24 ALT 29 Alkaline Phosphatase 58 Total Protein 6.0 L Albumin 3.1 L Quality VTE Prophylaxis VTE prophylaxis: mechanical ordered (SCDs)
[2020-01-27] MEDS: SODIUM CHLORIDE 0.9% IV 1,000 ML 80 ML IV CONT (09:05)
[2020-01-27] MEDS: FAMOTIDINE 20 MG/2 ML VIAL IV PUSH ×2 (09:06→20:05)
[2020-01-27 09:11] VITALS: BP 114/69; PULSE 83
--- NOTE | 2020-01-27 10:00 | PCPTNOTE ---
Patient refused treatment this session.
--- NOTE | 2020-01-27 13:23 | PM.IMPN ---
Progress Note: A&P Assessment and Plan (1) Severe malnutrition: Code(s): E43 - Unspecified severe protein-calorie malnutrition Status: Acute Assessment and Plan: Patient is 98lb on arrival. Patient does not want to eat, has no appetite. Patient expresses to me he would not want a feeding tube of any type. Continue dietary supplementation. Discussed long-term goals of care with patient's . She tells me he has had nothing to eat or drink since Monday, that he refuses to eat when she tries to feed him. Offered for her to speak with a hospice group - she would like to speak with her children first. She notes that he has an appointment with [facility] in May to establish care but tells me I am worried he may before then. Family to speak with [facility] nicolette. (2) Memory impairment: Code(s): R41.3 - Other amnesia Status: Chronic Assessment and Plan: Patient's neurologist is Dr. Ventura Urbano. Office note from 12/02/19 describes a diagnosis of subacute progressive memory impairment with delusions and frontal lobe cognitive issues, suspect for potential frontotemporal dementia with likely concurrent depression. (3) Generalized weakness: Code(s): R53.1 - Weakness Status: Acute Assessment and Plan: Secondary to severe malnutrition, debility. Patient declines PT/OT and will not walk. (4) Acute on chronic renal failure: Qualifiers: Acute renal failure type: unspecified Chronic kidney disease stage: unspecified stage Qualified Code(s): N17.9 - Acute kidney failure, unspecified; N18.9 - Chronic kidney disease, unspecified Code(s): N17.9 - Acute kidney failure, unspecified; N18.9 - Chronic kidney disease, unspecified Status: Acute Assessment and Plan: Cr 2.4 on arrival, improved to 1.1 with IV hydration. [place] to be secondary to poor/no oral intake. Monitor renal function. (5) Hypernatremia: Code(s): E87.0 - Hyperosmolality and hypernatremia Status: Resolved Assessment and Plan: Sodium 155 on arrival, treated with D5W. Sodium improved to 144 this morning, switched fluids back to normal saline. (6) Hydronephrosis: Qualifiers: Hydronephrosis type: unspecified Qualified Code(s): N13.30 - Unspecified hydronephrosis Code(s): N13.30 - Unspecified hydronephrosis Status: Resolved Assessment and Plan: CT abdomen/pelvis shows severe distention of the urinary bladder in moderate right hydroureteronephrosis. Urology consulted - appreciate recommendations. Resolved on renal ultrasound today. (7) History of prostate cancer: Code(s): Z85.46 - Personal history of malignant neoplasm of prostate Status: Chronic Assessment and Plan: Patient has history of prostate cancer, with brachytherapy seed implantation 2000 based on the EMR. (8) Urinary retention: Code(s): R33.9 - Retention of urine, unspecified Status: Acute Assessment and Plan: Jean catheter initiated. Low urine output may be secondary to severe dehydration. Appreciate urology input. Jean catheter insertion was attempted multiple times in the ED and had to be placed by urology, difficult placement due to prostate. If patient is to discharge with hospice, would consider leaving Jean catheter in. Hesitant to try voiding trial since it was difficult to place. (9) Coronary artery disease: Qualifiers: Coronary Disease-Associated Artery/Lesion type: bypass graft [place] vs. transplanted heart: [place] heart Associated angina: without angina Qualified Code(s): I25.810 - Atherosclerosis of coronary artery bypass graft(s) without angina pectoris
[2020-01-27 13:38] VITALS: BP 138/53; PULSE 88; RESP 18; TEMP 36.6; O2SAT 99
--- NOTE | 2020-01-27 13:57 | PCDIET ---
Nutrition Follow-Up Complete: Underweight R/T not eating as evidence of BMI of 15.3 PO intake of 50% of meals and supplements to halt further wt loss Goal:Goal not met. Continue goal. Pt current nutrition is Regular +Thrive +Enlive Nutrition recommendation: Agree Last recorded weight is 48.3 kg (steady from 42.9kg on admit) Bowel Motility:01/25 Labs Reviewed:Alb 3.1 Protein 6.0, Glucose 123 Meds Noted:Normal Saline, Dulcolax, Miralax Additional Notes: Pt eating 1% over the last four meals with a few bites of Thrive. Thrive and Enlive offered BID. Ensure Enlive provides 350kcal, 20g of protein, and 26 essential vitamins and minerals per serving. Thrive provides 9 grams of protein, 24 vitamins and minerals, 6grams of fiber, and 270 kcal per serving. MD notes state that pt does not want a feeding tube of any kind. He has no appetite or desire to eat. This may be due to advanced dementia. In this case feeding tube contraindicated. If family desires, could recommend use of appetite stimulant like Megace. Diet and supplements appropriate at this time. We will continue to follow every three days.
[2020-01-27 22:00] VITALS: BP 115/52; PULSE 83; RESP 18; TEMP 36.5; O2SAT 97
[2020-01-28] MEDS: SODIUM CHLORIDE 0.9% IV 1,000 ML 80 ML IV CONT (03:19)
[2020-01-28 05:16] LABS: Hematocrit 40.6 % (42.0-52.0); Hemoglobin 13.4 g/dL (14.0-18.0); Immature Platelet Fraction Pct 6.9 % (0.9-11.2); Mean Corpuscular Hemoglobin 30.8 pg (26-34); Mean Corpuscular Volume 93.3 fl (80-100); Mean Platelet Volume 11.6 fl (7.4-10.4); Platelet Count Result 104 k/mm3 (150-375); Red Blood Count 4.35 M/mm3 (4.6-6.20); Red Cell Distribution Width 13.2 % (11.5-14.5); White Blood Count 12.1 K/mm3 (4.5-10.0)
[2020-01-28 05:29] LABS: Alanine Aminotransferase 28 U/L (4-50); Alkaline Phosphatase 67 U/L (38-126); Aspartate Amino Transferase 26 U/L (17-59); Bilirubin,Total 1.6 mg/dL (0.2-1.3); Blood Urea Nitrogen 36 mg/dL (9-20); Calcium 8.7 mg/dL (8.4-10.2); Carbon Dioxide 25 mmol/L (22-30); Chloride 118 mmol/L (98-107); Estimated CRCL calculation 34 ml/min; Estimated Glomerular Filt Rate > 60; Glucose 87 mg/dL (75-110); Potassium 3.6 mmol/L (3.4-5.0); Sodium 147 mmol/L (137-145)
[2020-01-28 05:45] VITALS: BP 154/62; PULSE 82; RESP 20; TEMP 36.3; O2SAT 99
--- NOTE | 2020-01-28 07:00 | WPDUROPN2 ---
Progress Note: A&P Assessment and Plan (1) History of prostate cancer: Code(s): Z85.46 - Personal history of malignant neoplasm of prostate Status: Chronic (2) Urinary retention: Code(s): R33.9 - Retention of urine, unspecified Status: Acute Assessment and Plan: Tolerating catheter well and renal function back to normal. No plans for voiding trial until other issues (medical and social) worked-out. (3) Hydronephrosis: Qualifiers: Hydronephrosis type: unspecified Qualified Code(s): N13.30 - Unspecified hydronephrosis Code(s): N13.30 - Unspecified hydronephrosis Status: Resolved Assessment and Plan: Renal function has improved secondary to Jean catheter placement. Could reimage kidneys to document resolution of hydronephrosis. Subjective Subjective Date/Time Seen: 01/28/20 07:00 Urinary retention / LYUDMILA. Tolerating catheter well. Review of Systems Review of Systems: ROS unobtainable: Yes unobtainable due to mental status Genitourinary: Genitourinary: Denies hematuria and Denies dysuria Endocrine: Endocrine: Denies palpitations Exam Const: General: no acute distress Resp: Effort & Inspection: normal respiratory effort GI: Inspection: non-distended GI Palp: No abdominal tenderness and No Guarding due to palpation present (GI) Auscultation: normal bowel sounds Urinary Catheter: Urinary Catheter: patent and draining and urine clear Objective Data Vital Signs Vital Signs: Vital Signs - 24 hr 01/27/20 09:11 01/27/20 13:38 01/27/20 22:00 Temperature 97.9 F 97.7 F Pulse Rate 83 88 83 Respiratory Rate 18 18 Blood Pressure 114/69 138/53 L 115/52 L Pulse Oximetry 99 97 01/28/20 05:45 Temperature 97.4 F L Pulse Rate 82 Respiratory Rate 20 Blood Pressure 154/62 H Pulse Oximetry 99 Intake/Output Intake/Output: Intake & Output 01/25/20 01/26/20 01/27/20 01/28/20 23:59 23:59 23:59 23:59 Intake Total 2446 1971 2261 0 Output Total 728 788 1048 300 Balance 2221 1096 1011 -300 Meds/Results Medications: Active Medications Generic Name Dose Route Start Last Admin Trade Name Freq PRN Reason Stop Dose Admin Acetaminophen 650 mg 01/24/20 13:35 Tylenol Tablet PO Q4H PRN Mild Pain (1-3) or Fever Amlodipine Besylate 5 mg 01/25/20 09:00 01/27/20 09:23 Norvasc PO Not Given DAILY SHAE Bisacodyl 10 mg 01/25/20 08:31 01/25/20 18:29 Dulcolax Suppository RECTAL 10 mg DAILY PRN Administration Constipation Famotidine 20 mg 01/24/20 21:00 01/27/20 20:05 Pepcid Iv IV PUSH 20 mg Q12HR SHAE Administration Hydralazine HCl 10 mg 01/24/20 15:21 Apresoline Hcl Inj IV PUSH Q8H PRN Blood Pressure - High Sodium Chloride 1,000 mls @ 80 mls/hr 01/27/20 07:25 01/28/20 03:19 Normal Saline Iv IV CONT 80 mls/hr .[id number] SHAE Administration Polyethylene Glycol 17 gm 01/25/20 09:00 01/27/20 09:23 Miralax PO Not Given QAM [facility] Tamsulosin HCl 0.4 mg 01/27/20 11:20 01/27/20 12:30 Flomax PO Not Given QAM [facility] Radiology Results: ITS Impressions Chest X-Ray 01/24/20 12:27 IMPRESSION: COPD No active cardiopulmonary disease Status post sternotomy and probable aortic valve replacement Abdomen/Pelvis CT 01/24/20 18:55 IMPRESSION: 1. Severe distention of the urinary bladder. Moderate right hydroureteronephrosis is likely due to bladder distention. 2. Linear hyperattenuation in the dependent portion of the urinary bladder, likely bladder stones. 3. Constipation with fecal impaction in the rectum. [place] Ultrasound 01/27/20 10:20 IMPRESSION: Sludge in gallbladder Pancreas is obscured by bowel Renal Ultrasound 01/27/20 15:06 IMPRESSION: 1. Mild atrophy of the kidneys. No hydronephrosis. Labs Labs: Laboratory Results - last 24 hr 01/28/20 01/28/20 04:51 04:51 WBC 12.1 H RBC 4.35 L
[2020-01-28] MEDS: FAMOTIDINE 20 MG/2 ML VIAL IV PUSH (08:40)
[2020-01-28] MEDS: TAMSULOSIN HCL 0.4 MG CAPSULE PO (08:43)
[2020-01-28] MEDS: AMLODIPINE BESYLATE 5 MG TABLET PO (08:44)
--- NOTE | 2020-01-28 10:21 | PCPTNOTE ---
Patient refused treatment this session. Pt states he is too fatigued and can't move his legs. Therapist reassured Pt and offered to assist Pt with the LE exercises. Pt continued to refuse. Will attempt therapy session again.
--- NOTE | 2020-01-28 11:09 | PM.DS ---
DS: Diagnosis Admitting Diagnosis Admitting Diagnosis: Acute kidney failure, unspecified Discharge Diagnosis (1) Severe malnutrition: Code(s): E43 - Unspecified severe protein-calorie malnutrition Status: Acute (2) Memory impairment: Code(s): R41.3 - Other amnesia Status: Chronic (3) Generalized weakness: Code(s): R53.1 - Weakness Status: Acute (4) Acute on chronic renal failure: Qualifiers: Acute renal failure type: unspecified Chronic kidney disease stage: unspecified stage Qualified Code(s): N17.9 - Acute kidney failure, unspecified; N18.9 - Chronic kidney disease, unspecified Code(s): N17.9 - Acute kidney failure, unspecified; N18.9 - Chronic kidney disease, unspecified Status: Acute (5) Hypernatremia: Code(s): E87.0 - Hyperosmolality and hypernatremia Status: Resolved (6) Hydronephrosis: Qualifiers: Hydronephrosis type: unspecified Qualified Code(s): N13.30 - Unspecified hydronephrosis Code(s): N13.30 - Unspecified hydronephrosis Status: Resolved (7) History of prostate cancer: Code(s): Z85.46 - Personal history of malignant neoplasm of prostate Status: Chronic (8) Urinary retention: Code(s): R33.9 - Retention of urine, unspecified Status: Acute (9) Coronary artery disease: Qualifiers: Associated angina: without angina Coronary Disease-Associated Artery/Lesion type: bypass graft [place] vs. transplanted heart: [place] heart Qualified Code(s): I25.810 - Atherosclerosis of coronary artery bypass graft(s) without angina pectoris Code(s): I25.10 - Atherosclerotic heart disease of [place] coronary artery without angina pectoris Status: Chronic (10) Hypertension: Qualifiers: Hypertension type: essential hypertension Qualified Code(s): I10 - Essential (primary) hypertension Code(s): I10 - Essential (primary) hypertension Status: Chronic (11) Fecal impaction: Code(s): K56.41 - Fecal impaction Status: Acute DS: Summary Hospital Course Reason for hospitalization: Weakness Hospital Course: Patient is an 84-year-old male who with a history of dementia brought from home by his family for complaints of weakness and him not eating or drinking for the past few days. Vitals in the ER were temperature 36.8? C, pulse 101, respiratory rate 20, blood pressure 128/83, pulse ox 95 on room air. Initial white blood cell count 18.4, hemoglobin 17.0, hematocrit 52.0, platelets 225. Slightly inflated due to dehydration. Sodium was 154, potassium 4.3, chloride 119, carbon dioxide 25, BUN 87, creatinine 2.1, glucose 123. Pelvis CT which showed severe distention of the urinary bladder with moderate right hydro ureter nephrosis and constipation. Chest x-ray showed no acute cardiopulmonary disease. The patient underwent a right upper quadrant ultrasound which showed sludge in the gallbladder. Admitted to the hospitalist service and a urinary catheter was placed to Urology saw the patient. The patient's hydronephrosis improved with the catheter. UA did not indicate infection. His sodium, cr, and white blood cell count improved with IV hydration A long discussion was had with the family by the previous provider and because of the patient's advanced dementia and unwillingness to eat well and the family decided to go hospice. The patient has been having worsening dementia and Rhina, his talked to [facility] hospice. The family is going to follow up with hospice for their ongoing needs. Time Spent with Patient Time attestation: Total time spent providing and/or coordinating discharge services:40 min Time spent: Greater than 30 minutes Exam Narrative: Exam Narrative: General: Cachectic male resting in bed in no acute distress HEENT: normocephalic Neck: supple Neuro: Alert and oriented to himself, place and president but not the year. Could not voice s
== END 2020-01-28 12:50 | disposition hospice, home (50) | DRG 682 ==
LOC: ANHED 13:39 → ANH2MED 14:03
PROVIDERS: Nurse Practitioner; Physician Assistant; Admitting Provider Hospitalist; Emergency Provider Family Medicine; PCP Family Medicine; Visit Provider Hospitalist
DX: N17.9 Acute kidney failure, unspecified (principal); E43 Unspecified severe protein-calorie malnutrition; Z68.1 Body mass index [BMI] 19.9 or less, adult; E87.0 Hyperosmolality and hypernatremia; E86.0 Dehydration; F41.8 Other specified anxiety disorders; Z86.73 Personal history of transient ischemic attack (TIA), and cerebral infarction without residual deficits; Z92.3 Personal history of irradiation; I25.10 Atherosclerotic heart disease of native coronary artery without angina pectoris; Z95.1 Presence of aortocoronary bypass graft; R62.7 Adult failure to thrive; F03.90 Unspecified dementia, unspecified severity, without behavioral disturbance, psychotic disturbance, mood disturbance, and anxiety; I10 Essential (primary) hypertension; Z95.2 Presence of prosthetic heart valve; E78.5 Hyperlipidemia, unspecified; N13.30 Unspecified hydronephrosis; R41.3 Other amnesia; R33.9 Retention of urine, unspecified; K56.41 Fecal impaction
CPT/HCPCS: 36415; 71046; 74176; 76705; 76775; 80048; 80053; 81001; 83735; 84100; 84295; 84443; 85025; 85027; 85055; 93005; 96360; 96361; 97110; 97161; 97165; 97530; 99285; A9270; J7030; J7040; J7070